=== PATIENT | male | born 1990 | race Caucasian/White ===

== ENCOUNTER 2017-08-19 10:51 | Emergency (ER) | payer SELFPAY ==
[2017-08-19 10:52] VITALS: BP 138/67; PULSE 113; RESP 18; TEMP 98.2; O2SAT 98
[2017-08-19] MEDS ORDERED: IOHEXOL 350 MG/ML 10 ML VIAL (for RAD DIAG) IVCONTRAST ONE (10:52)
[2017-08-19] MEDS ORDERED: SODIUM CHLOR 0.9% 1000 ML INJ 1,000 ML IV SCH (11:09)
[2017-08-19] MEDS ORDERED: ONDANSETRON HCL 4 MG/2 ML VIAL IVP ONE (11:15)
[2017-08-19] MEDS ORDERED: SODIUM CHLORIDE 0.9% FLUSH 10 ML FLUSH IV FLUSH PRN (11:15)
--- NOTE | 2017-08-19 11:30 | PD ---
HPI Chief Complaint: GI Complaint Time Seen by Provider: 10:58 Travel History International Travel<30 days: No Contact w/Intl Traveler<30days: No Traveled to known affect area: No History of Present Illness HPI Patient is a 26-year-old male who presents the emergency room with multiple complaints. Patient reports that for the past 1.5 years, he has had nausea, vomiting, and diarrhea. Patient reports that symptoms are worse at nighttime, patient reports that he due to his schedule, he usually eats dinner before bedtime. Patient reports that he will wake up shortly thereafter with nausea and began to vomit. Patient reports that every morning, he has diarrhea. Patient reports that symptoms have been progressing and would like evaluation for this as he does not have a primary care doctor or insurance. Patient with no abdominal pain, no nausea or vomiting or diarrhea at this time. Patient reports that he is completely asymptomatic but would like to figure out why this is happening to him. Patient also reports that he wakes up in the middle night feeling short of breath and feeling as if he could not breathe. Reports that this has been going on for over 1.5 years. Patient with no fever chills, no cough or congestion, denies any recent travels or trips. Patient denies any history of PE or DVT. Reports that overall, he currently is not taking any medications and does not have any documented medical history. [facility] Past Medical History Medical History: Denies Significant Hx Tetanus Vaccination: Unknown Influenza Vaccination: No Past Surgical History Surgical History: No Previous Surgery Social History Alcohol Use: No Tobacco Use: No Substance Use: Yes (MARIJUANA DAILY) Allergies-Medications (Allergen,Severity, Reaction): Coded Allergies: No Known Allergies (Unverified , 08/19/17) Reported Meds & Prescriptions Reported Meds & Active Scripts Active Pepcid (Famotidine) 20 Mg Tab 20 Mg PO BID Review of Systems General / Constitutional: No: Fever Eyes: No: Visual changes HENT: No: Headaches Cardiovascular: No: Chest Pain or Discomfort, Palpitations, Irregular Rhythm Respiratory: Positive: Shortness of Breath Gastrointestinal: Positive: Nausea, Vomiting, Diarrhea, Abdominal Pain Genitourinary: No: Dysuria Musculoskeletal: No: Pain Skin: No Rash Neurologic: No: Weakness Psychiatric: No: Depression Endocrine: No: Polydipsia Hematologic/Lymphatic: No: Easy Bruising Physical Exam Narrative GENERAL: Mild distress SKIN: Focused skin assessment warm/dry. HEAD: Atraumatic. Normocephalic. EYES: Pupils equal and round. No scleral icterus. No injection or drainage. ENT: No nasal bleeding or discharge. Mucous membranes pink and moist. NECK: Trachea midline. No JVD. CARDIOVASCULAR: Tachycardia. No murmur appreciated. RESPIRATORY: No accessory muscle use. Clear to auscultation. Breath sounds equal bilaterally. GASTROINTESTINAL: Abdomen soft, non-tender, nondistended. Hepatic and splenic margins not palpable. MUSCULOSKELETAL: No obvious deformities. No clubbing. No cyanosis. No edema. NEUROLOGICAL: Awake and alert. No obvious cranial nerve deficits. Motor grossly within normal limits. Normal speech. PSYCHIATRIC: Appropriate mood and affect; insight and judgment normal. Data Data Last Documented VS Vital Signs Date Time Temp Pulse Resp B/P (MAP) Pulse Ox O2 Delivery O2 Flow Rate FiO2 08/19/17 11:35 83 16 130/72 (91) 97 Room Air 08/19/17 10:52 98.2 Orders Orders Complete Blood Count With Diff (08/19/17 11:09) Comprehensive Metabolic Panel (08/19/17 11:09) Lipase (08/19/17 11:09) Prothrombin Time / Inr (Pt) (08/19/17 11:09) Act Partial Throm Time (Ptt) (08/19/17 11:09) Urinalysis - C+S If Indicated (08/19/17 11:09) Ct Abd/Pel W Iv Contrast(Rout) (08/19/17 11:09) Iv Access Insert/Monitor (08/19/17 11:09) Ecg Monitoring (08/19/17 11:09) Oximetry (08/19/17 11:09) Ondansetron Inj (Zofran Inj) (08/19/17 11:15) Sodium Chlor 0.9% 1000 Ml Inj (Ns 1000 M (08/19/17 11:09) Sodium Chloride 0.9% Flush (Ns Flush) (08/19/17 11:15) Electrocardiogram (08/19/17 11:09) D-Dimer (08/19/17 11:09) Iohexol 350 Inj (Omnipaque 350 Inj) (08/19/17 10:52) Chest, Single Ap (08/19/17 13:18) Labs Laboratory Tests Test 08/19/17 11:35 08/19/17 13:00 White Blood Count 7.4 TH/MM3 Red Blood Count 5.10 MIL/MM3 Hemoglobin 15.0 GM/DL Hematocrit 43.5 % Mean Corpuscular Volume 85.3 FL Mean Corpuscular Hemoglobin 29.3 PG Mean Corpuscular Hemoglobin Concent 34.4 % Red Cell Distribution Width 13.6 % Platelet Count 275 TH/MM3 Mean Platelet Volume 8.5 FL Neutrophils (%) (Auto) 66.0 % Lymphocytes (%) (Auto) 23.9 % Monocytes (%) (Auto) 6.3 % Eosinophils (%) (Auto) 3.1 % Basophils (%) (Auto) 0.7 % Neutrophils # (Auto) 4.9 TH/MM3 Lymphocytes # (Auto) 1.8 TH/MM3 Monocytes # (Auto) 0.5 TH/MM3 Eosinophils # (Auto) 0.2 TH/MM3 Basophils # (Auto) 0.1 TH/MM3 CBC Comment DIFF FINAL Differential Comment Prothrombin Time 9.5 SEC Prothromb Time International Ratio 0.9 RATIO Activated Partial Thromboplast Time 27.8 SEC D-Dimer Quantitative (PE/DVT) LESS THAN 0.19 MG/L FEU Blood Urea Nitrogen 10 MG/DL Creatinine 0.80 MG/DL Random Glucose 110 MG/DL Total Protein 8.1 GM/DL Albumin 3.9 GM/DL Calcium Level 9.5 MG/DL Alkaline Phosphatase 114 U/L Aspartate Amino Transf (AST/SGOT) 24 U/L Alanine Aminotransferase (ALT/SGPT) 54 U/L Total Bilirubin 0.4 MG/DL Sodium Level 141 MEQ/L Potassium Level 3.9 MEQ/L Chloride Level 104 MEQ/L Carbon Dioxide Level 26.2 MEQ/L Anion Gap 11 MEQ/L Estimat Glomerular Filtration Rate 119 ML/MIN Lipase 281 U/L Urine Color YELLOW Urine Turbidity CLEAR Urine pH 7.0 Urine Specific [place] 1.017 Urine Protein NEG mg/dL Urine Glucose (UA) NEG mg/dL Urine Ketones NEG mg/dL Urine Occult Blood NEG Urine Nitrite NEG Urine Bilirubin NEG Urine Urobilinogen LESS THAN 2.0 MG/DL Urine Leukocyte Esterase NEG Urine RBC LESS THAN 1 /hpf Urine WBC LESS THAN 1 /hpf Urine Mucus FEW /lpf Microscopic Urinalysis Comment CULT NOT INDICATED MDM Medical Decision Making Medical Screen Exam Complete: Yes Emergency Medical Condition: Yes Medical Record Reviewed: Yes Interpretation(s) EKG at 1123: Normal sinus rhythm at 75 bpm, QT/QTc 342/370, no acute ST-T wave changes. Vital Signs Date Time Temp Pulse Resp B/P (MAP) Pulse Ox O2 Delivery O2 Flow Rate FiO2 08/19/17 10:52 98.2 113 18 138/67 (90) 98 Differential Diagnosis GERD, gastritis, gastric ulcer, cholecystitis, gastritis, sleep apnea, arrhythmia, PE Narrative Course Patient is a 26-year-old male who presents the emergency room with multiple complaints. Patient has been having nausea vomiting after he eats at nighttime , reports that this has been ongoing for the past 1.5 years. Reports concerns for having diarrhea every morning in addition to the symptoms. Patient at this time has no abdominal pain, no nausea vomiting or diarrhea. Discussed with patient that he mostly has acid reflux and should not eat 3 hours prior to going to sleep. Patient insists that he has to eat right before bedtime due to his busy schedule. Discussed with him that he can start Pepcid or Protonix to help with his acid reflux, patient reports that he will try this. Patient also with concerning findings for sleep apnea, reports that he wakes up in the middle night feeling short of breath. Patient is obese, discussed that he most likely has sleep apnea but will need a sleep study to diagnosis. Patient understands importance of follow-up for this. Patient is mildly tachycardic in the emergency room, discussed with him the need for workup. Patient is obese with tachycardia and short of breath, an EKG was ordered as well as a d-dimer to rule out PE as patient is low risk. I did order a CT of the abdomen and pelvis with contrast to evaluate patient's intermittent abdominal pain. He does understand that he will need to follow-up with a finance intern for definitive studies as I will only rule out emergencies in the emergency room. Patient understands that a sleep study and EGD and colonoscopies cannot be performed in the emergency room During the course of the patients emergency department visit, the patients history, examination, and differential diagnosis were reviewed with the patient. The patient was placed on a rn cardiac with oximetry and frequent blood pressure monitoring. The patient had an IV access obtained and blood work sent for analysis. The patient was initially provided IV fluids. The patients laboratory studies were reviewed and remarkable for CBC & BMP Diagram 08/19/17 11:35 Total Protein 8.1, Albumin 3.9, Calcium Level 9.5, Alkaline Phosphatase 114, Aspartate Amino Transf (AST/SGOT) 24, Alanine Aminotransferase (ALT/SGPT) 54, Total Bilirubin 0.4 Radiology studies were reviewed and remarkable for Last Impressions Chest X-Ray 08/19/17 1318 Signed Impressions: Service Date/Time: Saturday, August 19, 2017 13:30 - CONCLUSION: No acute disease. Kurt Oliver MD Abdomen/Pelvis CT 08/19/17 1109 Signed Impressions: Service Date/Time: Saturday, August 19, 2017 12:42 - CONCLUSION: 1. Punctate calyceal calculus in the superior pole of the right kidney. 2. 1.7 cm indeterminate density hypodense lesion in the inferior pole of the right kidney. Statistically, this reflects a complex hemorrhagic or proteinaceous cyst although other etiologies cannot be excluded. Followup examinations may be performed with MRI or ultrasound exams as clinically warranted. 3. Normal appendix. 4. Minimal colonic diverticulosis. Lj Rodriguez MD cbc: wnl bmp: wnl lft's: wnl d.dimer: less than 0.19 X-ray of the chest with no acute disease. CT of the abdomen and pelvis with 1.7 cm indeterminate density in the right kidney, normal appendix, minimal colonic diverticulosis. Patient with no abdominal pain at this time, abdomen is soft, nontender, nontender, no peritoneal signs. I reviewed all labs and all studies as well as all incidental findings with patient in detail. He will follow-up with finance intern, primary care doctor, he will return to the emergency room as needed. Understands also need for sleep study as he most likely will need a CPAP. Signs and symptoms of when to return to the emergency room was reviewed with patient in detail. Patient thankful for care Diagnosis Primary Impression: Abdominal pain Qualified Codes: R10.10 - Upper abdominal pain, unspecified Additional Impression: Shortness of breath Referrals: [facility] Patient Instructions: General Instructions Additional Instructions: Please provide patient with a copy of their lab work and studies at discharge* * Please follow up with your primary care doctor in 2-3 days Return to the ER if symptoms worsen or progress Return to the ER as needed Please follow-up with your finance intern Please follow-up for a CPAP study Med/Other Pt SpecificInfo: Prescription(s) given Scripts Famotidine (Pepcid) 20 Mg Tab 20 MG PO BID, #60 TAB 0 Refills Prov: Bernice Jones DO 08/19/17 Disposition: 01 DISCHARGE HOME Condition: Stable Bernice Jones DO August 19, 2017 11:30
[2017-08-19 11:35] VITALS: BP 130/72; PULSE 83; RESP 16; O2SAT 97
[2017-08-19 11:51] LABS: AUTOMATED NEUTROPHIL # 4.9 TH/MM3 (1.8-7.7); BASOPHIL # 0.1 TH/MM3 (0-0.2); BASOPHIL % 0.7 % (0.0-2.0); EOSINOPHIL # 0.2 TH/MM3 (0-0.4); EOSINOPHIL % 3.1 % (0.0-4.0); HEMATOCRIT 43.5 % (39.0-51.0); LYMPH % 23.9 % (9.0-44.0); LYMPHOCYTE # 1.8 TH/MM3 (1.0-4.8); MEAN CELL VOLUME 85.3 FL (80.0-100.0); MEAN CORPUSCULAR HEMOGLOBIN 29.3 PG (27.0-34.0); MEAN CORPUSCULAR HGB CONC 34.4 % (32.0-36.0); MEAN PLATELET VOLUME 8.5 FL (7.0-11.0); MONO % 6.3 % (0.0-8.0); MONOCYTE # 0.5 TH/MM3 (0-0.9); PLATELET COUNT 275 TH/MM3 (150-450); RED CELL DISTRIBUTION WIDTH 13.6 % (11.6-17.2); WHITE BLOOD COUNT 7.4 TH/MM3 (4.0-11.0)
[2017-08-19 12:05] LABS: INTERNATIONAL NORMALIZED RATIO 0.9 RATIO; PROTHROMBIN TIME - PATIENT 9.5 SEC (9.8-11.6)
[2017-08-19 12:06] LABS: D-DIMER LESS THAN 0.19 MG/L FEU (0.00-0.50)
[2017-08-19 12:09] LABS: ALT (GPT) 54 U/L (12-78)
[2017-08-19 12:11] LABS: ALKALINE PHOSPHATASE 114 U/L (45-117); TOTAL BILIRUBIN ADULT 0.4 MG/DL (0.2-1.0); TOTAL PROTEIN 8.1 GM/DL (6.4-8.2)
[2017-08-19 12:13] LABS: ALBUMIN 3.9 GM/DL (3.4-5.0); AST (GOT) 24 U/L (15-37); BICARBONATE 26.2 MEQ/L (21.0-32.0); BLOOD UREA NITROGEN 10 MG/DL (7-18); CALCIUM 9.5 MG/DL (8.5-10.1); CHLORIDE 104 MEQ/L (98-107); GLOMERULAR FILTRATION RATE 119 ML/MIN (>89); GLUCOSE,RANDOM 110 MG/DL (74-106); SODIUM (NA) 141 MEQ/L (136-145)
--- NOTE | 2017-08-19 12:27 | EKG ---
Date Performed: 08/19/2017 Time Performed: 11:23:41 PTAGE: 26 years EKG: Sinus rhythm NORMAL ECG NO PREVIOUS TRACING DOCTOR: Ajit Willson Interpretating Date/Time 08/19/2017 12:27:13
--- NOTE | 2017-08-19 13:25 | RADRPT ---
EXAM DATE/TIME: 08/19/2017 12:42 [facility] COMPARISON: No previous studies available for comparison. INDICATIONS : Upper abdomen pain IV CONTRAST: 71 cc Omnipaque 350 (iohexol) IV ORAL CONTRAST: No oral contrast ingested. RADIATION DOSE: 24.37 CTDIvol (mGy) MEDICAL HISTORY : None SURGICAL HISTORY : None. ENCOUNTER: Initial ACUITY: 1 day PAIN SCALE: 6/10 LOCATION: upper quadrant abdomen TECHNIQUE: Volumetric scanning of the abdomen and pelvis was performed. Using automated exposure control and ad justment of the mA and/or kV according to patient size, radiation dose was kept as low as reasonably achievable to obtain optimal diagnostic quality images. DICOM format image data is available electro nically for review and comparison. FINDINGS: LOWER LUNGS: The visualized lower lungs are clear. LIVER: Mild diffusely decreased hepatic density without hepatic volume loss or focal mass. No calcified gall stones. SPLEEN: Normal size without lesion. PANCREAS: Within normal limits. KIDNEYS: There is a 1.3 x 1.7 cm indeterminate density hypodense lesion in the inferior pole of the right kidn ey. Punctate calyceal calcification near the superior pole in the right kidney. Kidneys are otherwise symmetrical in size without hydronephrosis. ADRENAL GLANDS: Within normal limits. VASCULAR: There is no aortic aneurysm. BOWEL/MESENTERY: The stomach, small bowel, and colon demonstrate no acute abnormality. Appendix is visualized and nor mal in appearance. Minimal scattered colonic diverticula. There is no free intraperitoneal air or flu id. ABDOMINAL WALL: Within normal limits. RETROPERITONEUM: There is no lymphadenopathy. BLADDER: No wall thickening or mass. REPRODUCTIVE: Within normal limits. INGUINAL: Subcentimeter lymph nodes which are likely reactive in etiology. MUSCULOSKELETAL: Within normal limits for patient age. CONCLUSION: 1. Punctate calyceal calculus in the superior pole of the right kidney. 2. 1.7 cm indeterminate density hypodense lesion in the inferior pole of the right kidney. Statistica lly, this reflects a complex hemorrhagic or proteinaceous cyst although other etiologies cannot be ex cluded. Followup examinations may be performed with MRI or ultrasound exams as clinically warranted. 3. Normal appendix. 4. Minimal colonic diverticulosis. Lj Rodriguez MD on August 19, 2017 at 13:10 Board Certified Radiologist. This report was verified electronically.
[2017-08-19 13:34] LABS: BILIRUBIN, URINE NEG (NEG); BLOOD, URINE NEG (NEG); GLUCOSE,URINE NEG (NEG); KETONE, URINE NEG (NEG); MUCUS URINE FEW /lpf (OCC); NITRITE,URINE NEG (NEG); URINE COLOR YELLOW (YELLW/STRAW); URINE LEUKOCYTE ESTERASE NEG (NEG)
--- NOTE | 2017-08-19 14:17 | RADRPT ---
EXAM DATE/TIME: 08/19/2017 13:30 [facility] COMPARISON: No previous studies available for comparison. INDICATIONS : Shortness of breath and vomitting. MEDICAL HISTORY : None. SURGICAL HISTORY : None. ENCOUNTER: Initial ACUITY: 1 week PAIN SCORE: 0/10 LOCATION: Bilateral chest FINDINGS: A single view of the chest demonstrates the lungs to be symmetrically aerated without evidence of mas s, infiltrate or effusion. The cardiomediastinal contours are unremarkable. Osseous structures are intact. CONCLUSION: No acute disease. Kurt Oliver MD on August 19, 2017 at 14:15 Board Certified Radiologist. This report was verified electronically.
[2017-08-19] MEDS ORDERED: FAMO1TAB37 PO (14:37)
[2017-08-19 14:54] VITALS: BP 130/61; PULSE 73; RESP 14; O2SAT 98
== END 2017-08-19 14:56 | disposition home or self-care (01) ==
LOC: NEPD 10:51
DX: R10.10 Upper abdominal pain, unspecified (principal); R06.02 Shortness of breath; F12.90 Cannabis use, unspecified, uncomplicated
CPT/HCPCS: 71045; 74177; 80053; 81001; 83690; 85025; 85379; 85610; 85730; 93005; 96361; 96374; 99285; J2405; J7030; Q9967

== ENCOUNTER 2017-08-24 18:26 | Emergency (ER) | payer SELFPAY ==
[~2017-08-24 18:26] MED LIST: FAMO1TAB37 PO
[2017-08-24 19:12] VITALS: BP 152/105; PULSE 65; RESP 18; TEMP 97.8; O2SAT 98
== END 2017-08-24 19:20 | disposition left against medical advice (07) ==
LOC: NED 18:26
DX: R10.9 Unspecified abdominal pain (principal)
CPT/HCPCS: 99281